=== PATIENT | male | born 1940 | race Caucasian/White ===

== ENCOUNTER 2020-10-08 16:12 | Emergency (ER) | payer MEDICARE ==
[~2020-10-08] VITALS: Ht 180.3 cm; Wt 65.0 kg
[2020-10-08 16:15] VITALS: BP 116/70
[2020-10-08] MEDS ORDERED: DIPH,PERTUSS(ACELL),TET VAC/PF 0.5 ML IM-VACC ONE ×2 (16:30→18:06)
--- NOTE | 2020-10-08 18:53 | NUR ---
REPORT FROM MARIOLA, ASSUMING CARE OF PT AT THIS TIME.
--- NOTE | 2020-10-08 19:07 | NUR ---
BEDSIDE REPORT GIVEN TO FREDDIE VALDEZ FOR TRANSFER OF PATIENT CARE.
--- NOTE | 2020-10-08 19:11 | NUR ---
DISCHARGED VIA WHEELCHAIR VAN TO [facility]
== END 2020-10-08 19:13 | disposition home or self-care (01) ==
LOC: ED 19:04
DX: S01.01XA Laceration without foreign body of scalp, initial encounter (principal); R94.31 Abnormal electrocardiogram [ECG] [EKG]; W07.XXXA Fall from chair, initial encounter; Y93.89 Activity, other specified; Y92.098 Other place in other non-institutional residence as the place of occurrence of the external cause; Y99.8 Other external cause status
CPT/HCPCS: 12001; 70450; 93005; 99284